=== PATIENT | male | born 1960 | race Caucasian/White ===

== ENCOUNTER 2018-03-15 08:19 | Inpatient (IN) | payer MEDICAID ==
[~2018-03-15] VITALS: Ht 188 cm; Wt 96.6 kg
[2018-03-15 09:46] LABS: BASOPHILS % (AUTO) 0 % (0-1); EOSINOPHILS % (AUTO) 0 % (0-6); HEMOGLOBIN 17.6 g/dl (14.0-17.9); LYMPHOCYTES # (AUTO) 0.2 X10'3 (1.1-4.8); LYMPHOCYTES % (AUTO) 0.9 % (21-51); MEAN CORPUSCULAR HEMOGLOBIN 30.1 PG (27.0-31.0); MEAN CORPUSCULAR HGB CONC 34.5 % (33.0-36.5); MEAN CORPUSCULAR VOLUME 87.2 FL (78-98); MONOCYTES # (AUTO) 0.8 X10'3 (0-0.9); MONOCYTES % (AUTO) 3.3 % (2-12); NEUTROPHILS # (AUTO) 23.1 X10'3 (1.8-7.7); NEUTROPHILS % (AUTO) 95.8 % (42-75); PLATELET COUNT 139 X10'3 (140-440); RED BLOOD COUNT 5.85 X10'6 (4.70-6.10); RED CELL DISTRIBUTION WIDTH 13.5 % (11.5-14.5); WHITE BLOOD COUNT 24.1 X10'3 (4.5-11.0)
[2018-03-15 09:59] LABS: PLATELET ESTIMATE DECREASED; TOTAL CELLS COUNTED 100
[2018-03-15 10:00] LABS: TOXIC VACUOLATION 1+
[2018-03-15 10:04] LABS: INR 1.3 INR; PARTIAL THROMBOPLASTIN TIME 28 SECONDS (22-32); PROTHROMBIN TIME 13.1 SECONDS (9.0-12.0)
[2018-03-15 10:08] LABS: AMMONIA < 10 UMOL/L (11-32)
[2018-03-15 10:12] LABS: ALANINE AMINOTRANSFERASE 29 U/L (12-78); ALBUMIN 2.8 G/DL (3.4-5.0); ALBUMIN/GLOBULIN RATIO 0.6 (1.1-1.5); ALKALINE PHOSPHATASE 122 IU/L (46-116); ANION GAP 7 (8-16); ASPARTATE AMINO TRANSFERASE 25 U/L (10-37); BILIRUBIN,TOTAL 2.2 MG/DL (0.1-1.0); BLOOD UREA NITROGEN 23 MG/DL (7-18); CALCIUM 8.9 MG/DL (8.5-10.1); CHLORIDE 85 MMOL/L (99-107); CREATININE 1.35 MG/DL (0.60-1.10); GLUCOSE 133 MG/DL (70-104); POTASSIUM 3.4 MMOL/L (3.5-5.1); TOTAL CARBON DIOXIDE 27.1 MMOL/L (24-32); TOTAL PROTEIN 7.3 G/DL (6.4-8.2); eGFR 55 ML/MIN
[2018-03-15 10:14] LABS: SODIUM 119 MMOL/L (135-145)
[2018-03-15 10:16] LABS: ETHANOL < 0.010 GM/DL (0.0-0.010)
[2018-03-15 10:17] LABS: LACTIC SEPSIS 1.8 MMOL/L (0.4-2.0)
[2018-03-15] MEDS ORDERED: piperacillin/tazo 4.5gm/100ml 100 ML IV SCH (10:25)
[2018-03-15 10:37] LABS: CLARITY,URINE SLIGHTLY CLOUDY (Clear); COLOR,URINE YELLOW (Yellow); GLUCOSE, URINE NEGATIVE (Neg); KETONES,URINE TRACE mg/dl (Neg); LEUKOCYTE ESTERASE ,URINE NEGATIVE (Neg); NITRITES, URINE NEGATIVE (Neg); OCCULT BLOOD,URINE LARGE (Neg); PROTEIN,URINE 100 mg/dl (Neg)
[2018-03-15 10:40] LABS: URINE AMPHETAMINE SCREEN NEGATIVE (Neg); URINE BARBITUATE SCREEN NEGATIVE (Neg); URINE BENZODIAZEPINES SCREEN NEGATIVE (Neg); URINE CANNABINOID SCREEN NEGATIVE (Neg); URINE COCAINE SCREEN NEGATIVE (Neg); URINE METHADONE SCREEN NEGATIVE (Neg); URINE OPIATE SCREEN POSITIVE (Neg); URINE PHENCYCLIDINE SCREEN NEGATIVE (Neg)
[2018-03-15 10:52] LABS: UA COLLECTION TYPE STRAIGHT CATH
[2018-03-15 11:00] LABS: AMORPHOUS URATES 2+; BACTERIA,URINE NONE SEEN /HPF (Neg); SQUAMOUS EPITHELIAL CELL,UR FEW /LPF (FEW); WBC,URINE 0-4 /HPF (0-4)
[2018-03-15 11:01] LABS: RBC,URINE 0-2 /HPF (0-2)
[2018-03-15 11:02] LABS: HYALINE CASTS 0-3 /LPF (NEGATIVE)
[2018-03-15] MEDS ORDERED: LORazepam 2 mg/ml vial IV ONE (11:25)
[2018-03-15] MEDS ORDERED: normal saline 1000ML IV soln IV ONE (11:25)
[2018-03-15] MEDS ORDERED: NO HOME MEDS (11:35)
[2018-03-15] MEDS ORDERED: acetaminophen 650mg rectal suppository RC ONE (13:05)
[2018-03-15] MEDS ORDERED: normal saline 1000ML IV soln IVB ONE (13:05)
[2018-03-15] MEDS ORDERED: vancomycin/NS 1 GM ADD-VANTAGE 250 ML IV ONE (13:05)
[2018-03-15] MEDS ORDERED: magnesium 4gm in 100ml NS 100 ML IV PRN (14:25)
[2018-03-15] MEDS ORDERED: CefTRIAXone 2gm/D5W 50ml 50 ML IV SCH (14:25)
[2018-03-15] MEDS ORDERED: magnesium Cl slow-release 64mg tablet PO PRN (14:25)
[2018-03-15] MEDS ORDERED: HYDROcodone/acetaminophen 5mg/325mg tablet PO PRN (14:25)
[2018-03-15] MEDS ORDERED: potassium Cl 40MEQ/NS 500ml 500 ML IV PRN ×2 (14:25)
[2018-03-15] MEDS ORDERED: magnesium 1gm/100ml D5W IVPB 100 ML IV PRN (14:25)
[2018-03-15] MEDS ORDERED: potassium Cl 20 mEq SR tablet PO PRN (14:25)
[2018-03-15] MEDS ORDERED: acetaminophen 325mg tablet PO PRN ×2 (14:25)
[2018-03-15] MEDS ORDERED: magnesium hydroxide 30ml (MOM) UD suspension PO PRN (14:25)
[2018-03-15] MEDS ORDERED: HYDROmorphone inj. 0.5 MG/0.5 ML DISP.SYRIN IV PRN ×2 (14:25)
[2018-03-15] MEDS ORDERED: iohexol 300mg/ml 100ml inj. ONE (14:27)
[2018-03-15 14:46] LABS: HEMOGLOBIN A1C 5.4 % (4.5-6.2)
[2018-03-15] MEDS: K and/or MAG REPLACEMENT MC SCH (14:51)
[2018-03-15] MEDS ORDERED: vancomycin/NS 1 GM ADD-VANTAGE 250 ML X 1 DOSE IV ONE (15:00)
[2018-03-15 15:13] LABS: BASOPHILS % (AUTO) 0 % (0-1); EOSINOPHILS % (AUTO) 0 % (0-6); HEMATOCRIT 46.7 % (42.0-52.0); HEMOGLOBIN 16.1 g/dl (14.0-17.9); LYMPHOCYTES # (AUTO) 0.3 X10'3 (1.1-4.8); LYMPHOCYTES % (AUTO) 1.2 % (21-51); MEAN CORPUSCULAR HEMOGLOBIN 30.3 PG (27.0-31.0); MEAN CORPUSCULAR HGB CONC 34.5 % (33.0-36.5); MEAN CORPUSCULAR VOLUME 87.8 FL (78-98); MEAN PLATELET VOLUME 8.6 FL (7.4-10.4); MONOCYTES # (AUTO) 0.7 X10'3 (0-0.9); NEUTROPHILS # (AUTO) 20.8 X10'3 (1.8-7.7); NEUTROPHILS % (AUTO) 95.8 % (42-75); PLATELET COUNT 116 X10'3 (140-440); RED BLOOD COUNT 5.32 X10'6 (4.70-6.10); RED CELL DISTRIBUTION WIDTH 13.8 % (11.5-14.5); WHITE BLOOD COUNT 21.7 X10'3 (4.5-11.0)
[2018-03-15 15:28] LABS: NUCLEATED RED BLOOD CELLS 3 /100WBC (0-0); PLATELET ESTIMATE DECREASED; TOTAL CELLS COUNTED 100
[2018-03-15 15:33] LABS: ALANINE AMINOTRANSFERASE 27 U/L (12-78); ALBUMIN 2.3 G/DL (3.4-5.0); ALBUMIN/GLOBULIN RATIO 0.6 (1.1-1.5); ALKALINE PHOSPHATASE 108 IU/L (46-116); ANION GAP 7 (8-16); ASPARTATE AMINO TRANSFERASE 22 U/L (10-37); BLOOD UREA NITROGEN 22 MG/DL (7-18); BUN/CREATININE RATIO 15.8 (5.4-32.0); CALCIUM 7.8 MG/DL (8.5-10.1); CHLORIDE 92 MMOL/L (99-107); CREATININE 1.39 MG/DL (0.60-1.10); GLUCOSE 120 MG/DL (70-104); SODIUM 125 MMOL/L (135-145); eGFR 53 ML/MIN
[2018-03-15 15:35] LABS: HIV ANTIBODY 1&2 RAPID NON-REACTIVE (Neg)
[2018-03-15 15:50] LABS: C-REACTIVE PROTEIN 17.57 MG/DL (0.0-0.5)
[2018-03-15] MEDS: ziprasidone IM 20mg inj **IM only IM PRN (17:38)
[2018-03-15] MEDS: normal saline 1000ml 1,000 ML IV SCH (17:39)
[2018-03-15] MEDS: ampicillin inj 2 GM in normal saline 100ml IV soln 100 ML IV SCH ×3 (17:42→23:54)
[2018-03-15 18:00] VITALS: BP 114/66
[2018-03-15] MEDS: CefTRIAXone 2gm/D5W 50ml 50 ML IV SCH (19:54)
[2018-03-15] MEDS: heparin, porcine 5000 units/ml vial SQ SCH (19:55)
[2018-03-15 22:00] VITALS: BP 116/93
[2018-03-15] MEDS ORDERED: acetaminophen 120MG suppository, rectal RC PRN (22:55)
[2018-03-16] MEDS: normal saline 1000ml 1,000 ML IV SCH ×3 (00:21→11:56)
[2018-03-16 02:00] VITALS: BP 121/68
[2018-03-16] MEDS: ampicillin inj 2 GM in normal saline 100ml IV soln 100 ML IV SCH ×3 (04:09→11:48)
[2018-03-16] MEDS: ziprasidone IM 20mg inj **IM only IM PRN ×2 (04:16→10:54)
[2018-03-16] MEDS: vancomycin inj 1,250 MG in normal saline 250ml IV soln 250 ML IV SCH ×2 (05:17→16:38)
[2018-03-16 06:00] VITALS: BP 114/68
[2018-03-16 06:41] LABS: BASOPHILS % (AUTO) 0.1 % (0-1); EOSINOPHILS % (AUTO) 0 % (0-6); HEMATOCRIT 49.3 % (42.0-52.0); LYMPHOCYTES # (AUTO) 0.5 X10'3 (1.1-4.8); LYMPHOCYTES % (AUTO) 2.9 % (21-51); MEAN CORPUSCULAR HEMOGLOBIN 30.2 PG (27.0-31.0); MEAN CORPUSCULAR HGB CONC 34.5 % (33.0-36.5); MEAN CORPUSCULAR VOLUME 87.4 FL (78-98); MEAN PLATELET VOLUME 9.4 FL (7.4-10.4); MONOCYTES # (AUTO) 1.6 X10'3 (0-0.9); MONOCYTES % (AUTO) 8.9 % (2-12); NEUTROPHILS # (AUTO) 15.9 X10'3 (1.8-7.7); NEUTROPHILS % (AUTO) 88.1 % (42-75); PLATELET COUNT 93 X10'3 (140-440); RED BLOOD COUNT 5.65 X10'6 (4.70-6.10); RED CELL DISTRIBUTION WIDTH 13.8 % (11.5-14.5)
[2018-03-16 06:49] LABS: INR 1.3 INR; PARTIAL THROMBOPLASTIN TIME 29 SECONDS (22-32); PROTHROMBIN TIME 13.3 SECONDS (9.0-12.0)
[2018-03-16 06:56] LABS: ALANINE AMINOTRANSFERASE 25 U/L (12-78); ALBUMIN 2.1 G/DL (3.4-5.0); ALBUMIN/GLOBULIN RATIO 0.5 (1.1-1.5); ALKALINE PHOSPHATASE 103 IU/L (46-116); ANION GAP 10 (8-16); ASPARTATE AMINO TRANSFERASE 32 U/L (10-37); BILIRUBIN,TOTAL 1.2 MG/DL (0.1-1.0); BLOOD UREA NITROGEN 18 MG/DL (7-18); BUN/CREATININE RATIO 13.1 (5.4-32.0); CHLORIDE 100 MMOL/L (99-107); CREATININE 1.37 MG/DL (0.60-1.10); GLUCOSE 110 MG/DL (70-104); MAGNESIUM 1.6 MG/DL (1.5-2.4); PHOSPHORUS 2.1 MG/DL (2.3-4.5); POTASSIUM 3.1 MMOL/L (3.5-5.1); SODIUM 135 MMOL/L (135-145); TOTAL CARBON DIOXIDE 24.7 MMOL/L (24-32); TOTAL PROTEIN 6.2 G/DL (6.4-8.2); eGFR 54 ML/MIN
[2018-03-16] MEDS: K and/or MAG REPLACEMENT MC SCH (08:00)
[2018-03-16] MEDS: heparin, porcine 5000 units/ml vial SQ SCH ×2 (08:27→20:00)
[2018-03-16] MEDS: CefTRIAXone 2gm/D5W 50ml 50 ML IV SCH (08:29)
[2018-03-16] MEDS ORDERED: acetaminophen 325mg rectal suppository RC PRN (10:35)
[2018-03-16 11:00] VITALS: BP 126/79
[2018-03-16 15:00] VITALS: BP 118/77
[2018-03-16 19:00] VITALS: BP 121/76
[2018-03-16] MEDS: lactobacillus rhamnosus 10,000 MMU CELLS/CAPSULE PO SCH (20:00)
[2018-03-16] MEDS: HYDROcodone/acetaminophen 10/325mg tab PO PRN (22:45)
[2018-03-16] MEDS: LORazepam 2 mg/ml vial IV PRN (22:45)
[2018-03-16 23:00] VITALS: BP 118/77
[2018-03-17 03:00] VITALS: BP 122/75
[2018-03-17] MEDS: vancomycin inj 1,250 MG in normal saline 250ml IV soln 250 ML IV SCH ×2 (04:11→16:00)
[2018-03-17 05:46] LABS: BASOPHILS % (AUTO) 0 % (0-1); EOSINOPHILS # (AUTO) 0.1 X10'3 (0-0.9); EOSINOPHILS % (AUTO) 0.4 % (0-6); HEMATOCRIT 41.4 % (42.0-52.0); HEMOGLOBIN 14.4 g/dl (14.0-17.9); LYMPHOCYTES # (AUTO) 0.8 X10'3 (1.1-4.8); MEAN CORPUSCULAR HEMOGLOBIN 30.5 PG (27.0-31.0); MEAN CORPUSCULAR HGB CONC 34.8 % (33.0-36.5); MEAN CORPUSCULAR VOLUME 87.5 FL (78-98); MEAN PLATELET VOLUME 9.1 FL (7.4-10.4); MONOCYTES # (AUTO) 1.2 X10'3 (0-0.9); MONOCYTES % (AUTO) 7.4 % (2-12); NEUTROPHILS # (AUTO) 13.9 X10'3 (1.8-7.7); NEUTROPHILS % (AUTO) 87.2 % (42-75); PLATELET COUNT 69 X10'3 (140-440); RED BLOOD COUNT 4.73 X10'6 (4.70-6.10); RED CELL DISTRIBUTION WIDTH 14.5 % (11.5-14.5)
[2018-03-17 06:00] VITALS: BP 101/66
[2018-03-17 06:01] LABS: INR 1.2 INR; PARTIAL THROMBOPLASTIN TIME 27 SECONDS (22-32); PROTHROMBIN TIME 11.9 SECONDS (9.0-12.0)
[2018-03-17 06:12] LABS: ALANINE AMINOTRANSFERASE 33 U/L (12-78); ALBUMIN 1.8 G/DL (3.4-5.0); ALBUMIN/GLOBULIN RATIO 0.5 (1.1-1.5); ALKALINE PHOSPHATASE 85 IU/L (46-116); ANION GAP 8 (8-16); ASPARTATE AMINO TRANSFERASE 41 U/L (10-37); BILIRUBIN,TOTAL 1.1 MG/DL (0.1-1.0); BLOOD UREA NITROGEN 21 MG/DL (7-18); BUN/CREATININE RATIO 16.7 (5.4-32.0); CALCIUM 7.8 MG/DL (8.5-10.1); CHLORIDE 104 MMOL/L (99-107); CREATININE 1.26 MG/DL (0.60-1.10); GLUCOSE 108 MG/DL (70-104); MAGNESIUM 1.7 MG/DL (1.5-2.4); POTASSIUM 3.1 MMOL/L (3.5-5.1); SODIUM 137 MMOL/L (135-145); TOTAL PROTEIN 5.5 G/DL (6.4-8.2); eGFR 59 ML/MIN
[2018-03-17] MEDS: normal saline 1000ml 1,000 ML IV SCH ×2 (06:21→16:21)
[2018-03-17] MEDS: CefTRIAXone 2gm/D5W 50ml 50 ML IV SCH (08:00)
[2018-03-17] MEDS: K and/or MAG REPLACEMENT MC SCH (08:00)
[2018-03-17] MEDS: heparin, porcine 5000 units/ml vial SQ SCH ×2 (08:00→20:00)
[2018-03-17] MEDS: lactobacillus rhamnosus 10,000 MMU CELLS/CAPSULE PO SCH ×2 (08:00→20:29)
[2018-03-17] MEDS: ondansetron/PF 4mg/2ml inj IV PRN (10:36)
[2018-03-17 11:00] VITALS: BP 102/57
[2018-03-17] MEDS: potassium Cl 20 mEq SR tablet PO PRN (13:00)
[2018-03-17] MEDS ORDERED: VANCOMYCIN LEVEL IV ONE (15:30)
[2018-03-17 15:33] VITALS: BP 110/72
[2018-03-17] MEDS: HYDROcodone/acetaminophen 10/325mg tab PO PRN (17:12)
[2018-03-17 19:00] VITALS: BP 105/57
[2018-03-17 23:00] VITALS: BP 115/74
[2018-03-18] VITALS (7 sets, daily range): BP systolic 88–131; BP diastolic 47–79
[2018-03-18] MEDS: normal saline 1000ml 1,000 ML IV SCH ×3 (01:19→14:21)
[2018-03-18 05:48] LABS: BASOPHILS % (AUTO) 0.1 % (0-1); EOSINOPHILS # (AUTO) 0.2 X10'3 (0-0.9); EOSINOPHILS % (AUTO) 1.3 % (0-6); HEMATOCRIT 42.4 % (42.0-52.0); HEMOGLOBIN 14.6 g/dl (14.0-17.9); LYMPHOCYTES # (AUTO) 0.7 X10'3 (1.1-4.8); LYMPHOCYTES % (AUTO) 4.8 % (21-51); MEAN CORPUSCULAR HEMOGLOBIN 30.2 PG (27.0-31.0); MEAN CORPUSCULAR HGB CONC 34.3 % (33.0-36.5); MEAN PLATELET VOLUME 9.5 FL (7.4-10.4); MONOCYTES # (AUTO) 1.1 X10'3 (0-0.9); NEUTROPHILS # (AUTO) 13.4 X10'3 (1.8-7.7); NEUTROPHILS % (AUTO) 86.8 % (42-75); PLATELET COUNT 63 X10'3 (140-440); RED BLOOD COUNT 4.82 X10'6 (4.70-6.10); RED CELL DISTRIBUTION WIDTH 14.7 % (11.5-14.5); WHITE BLOOD COUNT 15.4 X10'3 (4.5-11.0)
[2018-03-18 06:04] LABS: INR 1.1 INR; PARTIAL THROMBOPLASTIN TIME 26 SECONDS (22-32); PROTHROMBIN TIME 11.1 SECONDS (9.0-12.0)
[2018-03-18 06:15] LABS: ALANINE AMINOTRANSFERASE 46 U/L (12-78); ALBUMIN 1.8 G/DL (3.4-5.0); ALBUMIN/GLOBULIN RATIO 0.5 (1.1-1.5); ALKALINE PHOSPHATASE 97 IU/L (46-116); ANION GAP 7 (8-16); ASPARTATE AMINO TRANSFERASE 53 U/L (10-37); BILIRUBIN,TOTAL 1.2 MG/DL (0.1-1.0); BLOOD UREA NITROGEN 15 MG/DL (7-18); CALCIUM 7.6 MG/DL (8.5-10.1); CHLORIDE 104 MMOL/L (99-107); CREATININE 1.25 MG/DL (0.60-1.10); GLUCOSE 98 MG/DL (70-104); MAGNESIUM 1.6 MG/DL (1.5-2.4); PHOSPHORUS 1.8 MG/DL (2.3-4.5); POTASSIUM 3.2 MMOL/L (3.5-5.1); SODIUM 138 MMOL/L (135-145); TOTAL CARBON DIOXIDE 26.7 MMOL/L (24-32); TOTAL PROTEIN 5.6 G/DL (6.4-8.2); eGFR 60 ML/MIN
[2018-03-18] MEDS: CefTRIAXone 2gm/D5W 50ml 50 ML IV SCH (07:57)
[2018-03-18] MEDS: heparin, porcine 5000 units/ml vial SQ SCH ×2 (07:57→20:00)
[2018-03-18] MEDS: potassium Cl 20 mEq SR tablet PO PRN ×3 (07:58→23:20)
[2018-03-18] MEDS: K and/or MAG REPLACEMENT MC SCH (07:58)
[2018-03-18] MEDS: lactobacillus rhamnosus 10,000 MMU CELLS/CAPSULE PO SCH ×2 (07:58→19:50)
[2018-03-18 11:09] LABS: URINE AMPHETAMINE SCREEN NEGATIVE (Neg); URINE BARBITUATE SCREEN NEGATIVE (Neg); URINE BENZODIAZEPINES SCREEN NEGATIVE (Neg); URINE CANNABINOID SCREEN NEGATIVE (Neg); URINE COCAINE SCREEN NEGATIVE (Neg); URINE METHADONE SCREEN NEGATIVE (Neg); URINE OPIATE SCREEN POSITIVE (Neg); URINE PHENCYCLIDINE SCREEN NEGATIVE (Neg)
[2018-03-18] MEDS: HYDROcodone/acetaminophen 10/325mg tab PO PRN ×3 (11:43→21:30)
[2018-03-18] MEDS ORDERED: normal saline 1000ml 1,000 ML IV ONE (12:05)
[2018-03-18] MEDS ORDERED: magnesium 4gm in 100ml NS 100 ML IV PRN ×2 (12:10→14:45)
[2018-03-18] MEDS ORDERED: potassium Cl 40MEQ/NS 500ml 500 ML IV PRN ×2 (14:45)
[2018-03-18] MEDS ORDERED: potassium Cl 20 mEq SR tablet PO PRN (14:45)
[2018-03-18] MEDS: NORMAL SALINE IV SCH ×2 (19:50→23:26)
[2018-03-18] MEDS: NAFCILLIN IV SCH ×2 (19:50→23:26)
[2018-03-18] MEDS: HYDROmorphone 1 mg/ml syringe IV PRN (23:26)
[2018-03-19 03:00] VITALS: BP 112/69
[2018-03-19] MEDS: NORMAL SALINE IV SCH ×5 (03:42→20:36)
[2018-03-19] MEDS: NAFCILLIN IV SCH ×5 (03:42→20:36)
[2018-03-19] MEDS: normal saline 1000ml 1,000 ML IV SCH ×2 (03:42→16:36)
[2018-03-19 05:51] LABS: BASOPHILS # (AUTO) 0.1 X10'3 (0-0.2); BASOPHILS % (AUTO) 0.4 % (0-1); EOSINOPHILS # (AUTO) 0.3 X10'3 (0-0.9); EOSINOPHILS % (AUTO) 1.7 % (0-6); HEMOGLOBIN 13.9 g/dl (14.0-17.9); LYMPHOCYTES # (AUTO) 1.1 X10'3 (1.1-4.8); LYMPHOCYTES % (AUTO) 6.7 % (21-51); MEAN CORPUSCULAR HEMOGLOBIN 30.4 PG (27.0-31.0); MEAN CORPUSCULAR HGB CONC 34.8 % (33.0-36.5); MEAN CORPUSCULAR VOLUME 87.5 FL (78-98); MEAN PLATELET VOLUME 9.5 FL (7.4-10.4); MONOCYTES # (AUTO) 1.2 X10'3 (0-0.9); MONOCYTES % (AUTO) 7.5 % (2-12); NEUTROPHILS # (AUTO) 13.5 X10'3 (1.8-7.7); NEUTROPHILS % (AUTO) 83.7 % (42-75); PLATELET COUNT 77 X10'3 (140-440); RED BLOOD COUNT 4.58 X10'6 (4.70-6.10); RED CELL DISTRIBUTION WIDTH 14.7 % (11.5-14.5); WHITE BLOOD COUNT 16.1 X10'3 (4.5-11.0)
[2018-03-19 06:00] VITALS: BP 113/67
[2018-03-19 06:00] LABS: INR 1.1 INR; PROTHROMBIN TIME 11.6 SECONDS (9.0-12.0)
[2018-03-19 06:13] LABS: ALANINE AMINOTRANSFERASE 55 U/L (12-78); ALBUMIN 1.7 G/DL (3.4-5.0); ALBUMIN/GLOBULIN RATIO 0.4 (1.1-1.5); ALKALINE PHOSPHATASE 104 IU/L (46-116); ANION GAP 8 (8-16); ASPARTATE AMINO TRANSFERASE 55 U/L (10-37); BILIRUBIN,TOTAL 2.1 MG/DL (0.1-1.0); BLOOD UREA NITROGEN 11 MG/DL (7-18); BUN/CREATININE RATIO 9.6 (5.4-32.0); CALCIUM 7.3 MG/DL (8.5-10.1); CHLORIDE 105 MMOL/L (99-107); CREATININE 1.14 MG/DL (0.60-1.10); GLUCOSE 106 MG/DL (70-104); MAGNESIUM 1.5 MG/DL (1.5-2.4); PHOSPHORUS 2.3 MG/DL (2.3-4.5); POTASSIUM 3.2 MMOL/L (3.5-5.1); SODIUM 139 MMOL/L (135-145); TOTAL CARBON DIOXIDE 25.7 MMOL/L (24-32); TOTAL PROTEIN 5.6 G/DL (6.4-8.2); eGFR 67 ML/MIN
[2018-03-19] MEDS: potassium Cl 20 mEq SR tablet PO PRN ×3 (08:55→20:36)
[2018-03-19] MEDS: lactobacillus rhamnosus 10,000 MMU CELLS/CAPSULE PO SCH ×2 (08:55→20:36)
[2018-03-19] MEDS: HYDROcodone/acetaminophen 10/325mg tab PO PRN ×3 (08:56→20:37)
[2018-03-19] MEDS: K and/or MAG REPLACEMENT MC SCH (08:59)
[2018-03-19 11:00] VITALS: BP 111/63
[2018-03-19] MEDS: HYDROmorphone 1 mg/ml syringe IV PRN ×2 (12:09→16:43)
[2018-03-19 15:00] VITALS: BP 111/62
[2018-03-19] MEDS ORDERED: VANCOMYCIN LEVEL IV ONE (15:30)
[2018-03-19 19:00] VITALS: BP 127/85
[2018-03-19] MEDS: vancomcyin 250mg capsules PO SCH (20:35)
[2018-03-19] MEDS: diatr meglu/diatrizoate 30ml oral sol.-(3 dose) bottle PO SCH (20:36)
[2018-03-19 23:00] VITALS: BP 96/53
[2018-03-20] MEDS: NORMAL SALINE IV SCH ×6 (00:39→20:28)
[2018-03-20] MEDS: NAFCILLIN IV SCH ×6 (00:39→20:28)
[2018-03-20] MEDS: vancomcyin 250mg capsules PO SCH ×4 (02:25→20:28)
[2018-03-20 03:00] VITALS: BP 102/56
[2018-03-20] MEDS: normal saline 1000ml 1,000 ML IV SCH ×2 (04:48→14:21)
[2018-03-20 05:30] VITALS: BP 134/68
[2018-03-20 05:45] LABS: BASOPHILS % (AUTO) 0.5 % (0-1); EOSINOPHILS # (AUTO) 0.3 X10'3 (0-0.9); EOSINOPHILS % (AUTO) 2.9 % (0-6); HEMATOCRIT 36.6 % (42.0-52.0); HEMOGLOBIN 12.6 g/dl (14.0-17.9); LYMPHOCYTES % (AUTO) 10.7 % (21-51); MEAN CORPUSCULAR HEMOGLOBIN 30.2 PG (27.0-31.0); MEAN CORPUSCULAR HGB CONC 34.5 % (33.0-36.5); MEAN CORPUSCULAR VOLUME 87.6 FL (78-98); MONOCYTES # (AUTO) 0.8 X10'3 (0-0.9); MONOCYTES % (AUTO) 8.6 % (2-12); NEUTROPHILS # (AUTO) 7.2 X10'3 (1.8-7.7); NEUTROPHILS % (AUTO) 77.3 % (42-75); PLATELET COUNT 114 X10'3 (140-440); RED BLOOD COUNT 4.18 X10'6 (4.70-6.10); RED CELL DISTRIBUTION WIDTH 15.2 % (11.5-14.5); WHITE BLOOD COUNT 9.3 X10'3 (4.5-11.0)
[2018-03-20 05:58] LABS: INR 1.2 INR; PROTHROMBIN TIME 12.3 SECONDS (9.0-12.0)
[2018-03-20 06:05] LABS: ALANINE AMINOTRANSFERASE 37 U/L (12-78); ALBUMIN 1.5 G/DL (3.4-5.0); ALBUMIN/GLOBULIN RATIO 0.4 (1.1-1.5); ALKALINE PHOSPHATASE 85 IU/L (46-116); ANION GAP 6 (8-16); ASPARTATE AMINO TRANSFERASE 31 U/L (10-37); BILIRUBIN,TOTAL 1.3 MG/DL (0.1-1.0); BLOOD UREA NITROGEN 6 MG/DL (7-18); BUN/CREATININE RATIO 6.2 (5.4-32.0); CALCIUM 7.2 MG/DL (8.5-10.1); CHLORIDE 107 MMOL/L (99-107); CREATININE 0.97 MG/DL (0.60-1.10); GLUCOSE 106 MG/DL (70-104); MAGNESIUM 1.4 MG/DL (1.5-2.4); POTASSIUM 3.3 MMOL/L (3.5-5.1); SODIUM 139 MMOL/L (135-145); TOTAL PROTEIN 5.1 G/DL (6.4-8.2); eGFR 80 ML/MIN
[2018-03-20] MEDS: potassium Cl 20 mEq SR tablet PO PRN ×3 (07:25→16:44)
[2018-03-20] MEDS: diatr meglu/diatrizoate 30ml oral sol.-(3 dose) bottle PO SCH ×2 (07:25→09:51)
[2018-03-20] MEDS: HYDROcodone/acetaminophen 10/325mg tab PO PRN ×3 (07:26→20:31)
[2018-03-20] MEDS: lactobacillus rhamnosus 10,000 MMU CELLS/CAPSULE PO SCH ×2 (07:26→20:28)
[2018-03-20] MEDS: magnesium Cl slow-release 64mg tablet PO PRN ×2 (07:26→16:44)
[2018-03-20] MEDS: K and/or MAG REPLACEMENT MC SCH (07:27)
[2018-03-20 11:00] VITALS: BP 102/43
[2018-03-20] MEDS: HYDROmorphone 1 mg/ml syringe IV PRN (12:04)
[2018-03-20] MEDS ORDERED: iohexol 300mg/ml 100ml inj. ONE (13:31)
[2018-03-20 15:00] VITALS: BP 110/62
[2018-03-20 19:00] VITALS: BP 109/56
[2018-03-20] MEDS: ondansetron/PF 4mg/2ml inj IV PRN (20:32)
[2018-03-20 23:00] VITALS: BP 103/64
[2018-03-21] MEDS: normal saline 1000ml 1,000 ML IV SCH ×3 (00:27→19:42)
[2018-03-21] MEDS: NORMAL SALINE IV SCH ×7 (00:28→23:52)
[2018-03-21] MEDS: NAFCILLIN IV SCH ×7 (00:28→23:52)
[2018-03-21] MEDS: temazepam 15mg capsule PO PRN ×2 (00:33→21:42)
[2018-03-21] MEDS: HYDROcodone/acetaminophen 10/325mg tab PO PRN ×4 (00:33→16:25)
[2018-03-21] MEDS: vancomcyin 250mg capsules PO SCH ×2 (02:25→08:08)
[2018-03-21 03:00] VITALS: BP 105/64
[2018-03-21] MEDS: mag hydrox/Alum hydrox/simeth 30ml oral suspension PO PRN (04:36)
[2018-03-21 05:30] VITALS: BP 95/54
[2018-03-21 06:11] LABS: MAGNESIUM 1.4 MG/DL (1.5-2.4)
[2018-03-21 07:06] LABS: BASOPHILS % (AUTO) 0.3 % (0-1); EOSINOPHILS # (AUTO) 0.3 X10'3 (0-0.9); EOSINOPHILS % (AUTO) 4.8 % (0-6); HEMATOCRIT 35.3 % (42.0-52.0); HEMOGLOBIN 12.1 g/dl (14.0-17.9); LYMPHOCYTES % (AUTO) 16.8 % (21-51); MEAN CORPUSCULAR HEMOGLOBIN 30.4 PG (27.0-31.0); MEAN CORPUSCULAR HGB CONC 34.4 % (33.0-36.5); MEAN CORPUSCULAR VOLUME 88.5 FL (78-98); MEAN PLATELET VOLUME 8.9 FL (7.4-10.4); MONOCYTES # (AUTO) 0.7 X10'3 (0-0.9); MONOCYTES % (AUTO) 11.2 % (2-12); NEUTROPHILS % (AUTO) 66.9 % (42-75); PLATELET COUNT 136 X10'3 (140-440); RED BLOOD COUNT 3.99 X10'6 (4.70-6.10); RED CELL DISTRIBUTION WIDTH 14.9 % (11.5-14.5)
[2018-03-21 07:13] LABS: POTASSIUM 3.5 MMOL/L (3.5-5.1)
[2018-03-21] MEDS: K and/or MAG REPLACEMENT MC SCH (08:00)
[2018-03-21] MEDS: magnesium Cl slow-release 64mg tablet PO PRN (08:08)
[2018-03-21] MEDS: lactobacillus rhamnosus 10,000 MMU CELLS/CAPSULE PO SCH ×2 (08:08→19:30)
[2018-03-21] MEDS: ondansetron/PF 4mg/2ml inj IV PRN (09:07)
[2018-03-21 11:00] VITALS: BP 105/62
[2018-03-21 15:00] VITALS: BP 103/62
[2018-03-21 19:00] VITALS: BP 125/67
[2018-03-21] MEDS: HYDROmorphone 1 mg/ml syringe IV PRN ×2 (19:42→23:53)
[2018-03-21 23:00] VITALS: BP 122/67
[2018-03-22 03:00] VITALS: BP 104/64
[2018-03-22] MEDS: NORMAL SALINE IV SCH ×5 (04:59→19:43)
[2018-03-22] MEDS: NAFCILLIN IV SCH ×5 (04:59→19:43)
[2018-03-22] MEDS: HYDROmorphone 1 mg/ml syringe IV PRN ×5 (05:05→23:56)
[2018-03-22 06:30] VITALS: BP 137/72
[2018-03-22] MEDS: normal saline 1000ml 1,000 ML IV SCH ×2 (06:34→16:21)
[2018-03-22] MEDS: K and/or MAG REPLACEMENT MC SCH (08:00)
[2018-03-22] MEDS: lactobacillus rhamnosus 10,000 MMU CELLS/CAPSULE PO SCH ×2 (08:13→19:43)
[2018-03-22] MEDS: ondansetron/PF 4mg/2ml inj IV PRN ×2 (09:26→16:04)
[2018-03-22 09:33] LABS: BASOPHILS # (AUTO) 0.1 X10'3 (0-0.2); BASOPHILS % (AUTO) 1.1 % (0-1); EOSINOPHILS # (AUTO) 0.1 X10'3 (0-0.9); EOSINOPHILS % (AUTO) 1.6 % (0-6); HEMATOCRIT 36.5 % (42.0-52.0); HEMOGLOBIN 12.8 g/dl (14.0-17.9); LYMPHOCYTES # (AUTO) 0.8 X10'3 (1.1-4.8); LYMPHOCYTES % (AUTO) 10.8 % (21-51); MEAN CORPUSCULAR HEMOGLOBIN 30.8 PG (27.0-31.0); MEAN CORPUSCULAR HGB CONC 35.1 % (33.0-36.5); MEAN CORPUSCULAR VOLUME 87.7 FL (78-98); MEAN PLATELET VOLUME 8.4 FL (7.4-10.4); MONOCYTES # (AUTO) 0.7 X10'3 (0-0.9); MONOCYTES % (AUTO) 9.1 % (2-12); NEUTROPHILS # (AUTO) 5.9 X10'3 (1.8-7.7); NEUTROPHILS % (AUTO) 77.4 % (42-75); PLATELET COUNT 183 X10'3 (140-440); RED BLOOD COUNT 4.16 X10'6 (4.70-6.10); RED CELL DISTRIBUTION WIDTH 14.8 % (11.5-14.5); WHITE BLOOD COUNT 7.6 X10'3 (4.5-11.0)
[2018-03-22 09:49] LABS: ALANINE AMINOTRANSFERASE 24 U/L (12-78); ALBUMIN 1.8 G/DL (3.4-5.0); ALBUMIN/GLOBULIN RATIO 0.4 (1.1-1.5); ALKALINE PHOSPHATASE 74 IU/L (46-116); ANION GAP 7 (8-16); ASPARTATE AMINO TRANSFERASE 29 U/L (10-37); BILIRUBIN,TOTAL 1.1 MG/DL (0.1-1.0); BLOOD UREA NITROGEN 4 MG/DL (7-18); BUN/CREATININE RATIO 4.2 (5.4-32.0); CALCIUM 7.7 MG/DL (8.5-10.1); CHLORIDE 105 MMOL/L (99-107); CREATININE 0.95 MG/DL (0.60-1.10); GLUCOSE 113 MG/DL (70-104); POTASSIUM 3.7 MMOL/L (3.5-5.1); SODIUM 139 MMOL/L (135-145); TOTAL CARBON DIOXIDE 26.9 MMOL/L (24-32); TOTAL PROTEIN 6.3 G/DL (6.4-8.2); eGFR 82 ML/MIN
[2018-03-22 11:00] VITALS: BP 116/78
[2018-03-22] MEDS: magnesium 1gm/100ml D5W IVPB 100 ML IV PRN ×2 (13:43→17:14)
[2018-03-22 15:00] VITALS: BP 122/72
[2018-03-22 18:00] VITALS: BP 140/92
[2018-03-22 23:00] VITALS: BP 120/78
[2018-03-23 03:00] VITALS: BP 121/91
[2018-03-23] MEDS: NORMAL SALINE IV SCH ×8 (04:16→23:17)
[2018-03-23] MEDS: NAFCILLIN IV SCH ×8 (04:16→23:17)
[2018-03-23] MEDS: HYDROmorphone 1 mg/ml syringe IV PRN ×5 (04:18→22:58)
[2018-03-23 06:00] VITALS: BP 119/68
[2018-03-23 06:07] LABS: BASOPHILS % (AUTO) 0.3 % (0-1); EOSINOPHILS # (AUTO) 0.2 X10'3 (0-0.9); EOSINOPHILS % (AUTO) 2.5 % (0-6); HEMOGLOBIN 12.8 g/dl (14.0-17.9); LYMPHOCYTES # (AUTO) 0.9 X10'3 (1.1-4.8); LYMPHOCYTES % (AUTO) 9.8 % (21-51); MEAN CORPUSCULAR HEMOGLOBIN 30.6 PG (27.0-31.0); MEAN CORPUSCULAR HGB CONC 34.7 % (33.0-36.5); MEAN PLATELET VOLUME 8.6 FL (7.4-10.4); MONOCYTES # (AUTO) 0.8 X10'3 (0-0.9); NEUTROPHILS # (AUTO) 6.9 X10'3 (1.8-7.7); NEUTROPHILS % (AUTO) 78.4 % (42-75); PLATELET COUNT 212 X10'3 (140-440); RED CELL DISTRIBUTION WIDTH 14.7 % (11.5-14.5); WHITE BLOOD COUNT 8.8 X10'3 (4.5-11.0)
[2018-03-23 06:39] LABS: ALANINE AMINOTRANSFERASE 29 U/L (12-78); ALBUMIN 1.7 G/DL (3.4-5.0); ALBUMIN/GLOBULIN RATIO 0.4 (1.1-1.5); ALKALINE PHOSPHATASE 72 IU/L (46-116); ANION GAP 4 (8-16); ASPARTATE AMINO TRANSFERASE 24 U/L (10-37); BILIRUBIN,TOTAL 1.1 MG/DL (0.1-1.0); BLOOD UREA NITROGEN 6 MG/DL (7-18); BUN/CREATININE RATIO 6.3 (5.4-32.0); CALCIUM 7.5 MG/DL (8.5-10.1); CHLORIDE 103 MMOL/L (99-107); CREATININE 0.96 MG/DL (0.60-1.10); GLUCOSE 112 MG/DL (70-104); POTASSIUM 3.8 MMOL/L (3.5-5.1); SODIUM 134 MMOL/L (135-145); TOTAL PROTEIN 6.4 G/DL (6.4-8.2); eGFR 81 ML/MIN
[2018-03-23] MEDS: K and/or MAG REPLACEMENT MC SCH (08:00)
[2018-03-23] MEDS: lactobacillus rhamnosus 10,000 MMU CELLS/CAPSULE PO SCH ×2 (08:13→20:22)
[2018-03-23] MEDS: ondansetron/PF 4mg/2ml inj IV PRN ×2 (09:11→20:22)
[2018-03-23] MEDS: LORazepam 2 mg/ml vial IV PRN (09:12)
[2018-03-23] MEDS ORDERED: ipratropium/albuterol 3ml nebule NEB PRN (10:30)
[2018-03-23 11:00] VITALS: BP 132/67
[2018-03-23] MEDS: ipratropium/albuterol 3ml nebule NEB SCH ×4 (12:29→23:07)
[2018-03-23] MEDS: normal saline 1000ml 1,000 ML IV SCH ×2 (12:41)
[2018-03-23 15:00] VITALS: BP 135/76
[2018-03-23 18:00] VITALS: BP 122/66
[2018-03-23 22:00] VITALS: BP 120/81
[2018-03-24] VITALS (11 sets, daily range): BP systolic 119–135; BP diastolic 20–86
[2018-03-24] MEDS: normal saline 1000ml 1,000 ML IV SCH ×3 (03:08→18:21)
[2018-03-24] MEDS: HYDROmorphone 1 mg/ml syringe IV PRN ×3 (04:17→20:53)
[2018-03-24] MEDS: NORMAL SALINE IV SCH ×5 (04:19→20:00)
[2018-03-24] MEDS: NAFCILLIN IV SCH ×5 (04:19→20:00)
[2018-03-24 06:31] LABS: BASOPHILS % (AUTO) 0.5 % (0-1); EOSINOPHILS # (AUTO) 0.3 X10'3 (0-0.9); EOSINOPHILS % (AUTO) 3.8 % (0-6); HEMATOCRIT 37.2 % (42.0-52.0); HEMOGLOBIN 12.6 g/dl (14.0-17.9); LYMPHOCYTES # (AUTO) 0.9 X10'3 (1.1-4.8); LYMPHOCYTES % (AUTO) 10.7 % (21-51); MEAN CORPUSCULAR HEMOGLOBIN 30.1 PG (27.0-31.0); MEAN CORPUSCULAR HGB CONC 33.8 % (33.0-36.5); MEAN PLATELET VOLUME 8.4 FL (7.4-10.4); MONOCYTES # (AUTO) 0.8 X10'3 (0-0.9); MONOCYTES % (AUTO) 9.8 % (2-12); NEUTROPHILS % (AUTO) 75.2 % (42-75); PLATELET COUNT 236 X10'3 (140-440); RED BLOOD COUNT 4.18 X10'6 (4.70-6.10); RED CELL DISTRIBUTION WIDTH 15.2 % (11.5-14.5)
[2018-03-24] MEDS: ipratropium/albuterol 3ml nebule NEB SCH ×5 (07:34→23:23)
[2018-03-24] MEDS: lactobacillus rhamnosus 10,000 MMU CELLS/CAPSULE PO SCH ×2 (08:00→20:18)
[2018-03-24] MEDS: K and/or MAG REPLACEMENT MC SCH (08:00)
[2018-03-24] MEDS ORDERED: LIDOcaine Viscous 15ml cup ONE (11:33)
[2018-03-24] MEDS ORDERED: MIDAZolam 5mg/5ml vial ONE (11:33)
[2018-03-24] MEDS ORDERED: fentaNYL/PF 50MCG/1 ML 2ML syringe ONE (11:33)
[2018-03-24] MEDS ORDERED: diphenhydrAMINE 50 mg/ml inj ONE (12:35)
[2018-03-24] MEDS: pantoprazole 40MG/NS 100ML BAG 100 ML IV SCH ×2 (15:59→20:18)
[2018-03-24] MEDS: amitriptyline 25mg tablet PO SCH (20:18)
[2018-03-24 20:55] LABS: H PYLORI ANTIBODY NEGATIVE (Neg)
[2018-03-25] MEDS: NAFCILLIN IV SCH ×6 (00:34→19:43)
[2018-03-25] MEDS: NORMAL SALINE IV SCH ×6 (00:34→19:43)
[2018-03-25] MEDS: pantoprazole 40MG/NS 100ML BAG 100 ML IV SCH ×2 (00:34→06:20)
[2018-03-25 03:00] VITALS: BP 133/88
[2018-03-25] MEDS: ipratropium/albuterol 3ml nebule NEB SCH ×6 (03:19→23:18)
[2018-03-25] MEDS: HYDROmorphone 1 mg/ml syringe IV PRN ×2 (03:41→07:44)
[2018-03-25] MEDS: normal saline 1000ml 1,000 ML IV SCH ×2 (04:21→17:27)
[2018-03-25 06:00] VITALS: BP 147/93
[2018-03-25 06:43] LABS: BASOPHILS # (AUTO) 0.1 X10'3 (0-0.2); BASOPHILS % (AUTO) 0.9 % (0-1); EOSINOPHILS # (AUTO) 0.3 X10'3 (0-0.9); HEMATOCRIT 35.7 % (42.0-52.0); HEMOGLOBIN 12.3 g/dl (14.0-17.9); LYMPHOCYTES % (AUTO) 14.8 % (21-51); MEAN CORPUSCULAR HEMOGLOBIN 30.3 PG (27.0-31.0); MEAN CORPUSCULAR HGB CONC 34.3 % (33.0-36.5); MEAN CORPUSCULAR VOLUME 88.2 FL (78-98); MEAN PLATELET VOLUME 8.3 FL (7.4-10.4); MONOCYTES # (AUTO) 0.8 X10'3 (0-0.9); MONOCYTES % (AUTO) 11.2 % (2-12); NEUTROPHILS # (AUTO) 4.6 X10'3 (1.8-7.7); NEUTROPHILS % (AUTO) 69.1 % (42-75); PLATELET COUNT 252 X10'3 (140-440); RED BLOOD COUNT 4.05 X10'6 (4.70-6.10); RED CELL DISTRIBUTION WIDTH 15.1 % (11.5-14.5); WHITE BLOOD COUNT 6.7 X10'3 (4.5-11.0)
[2018-03-25 07:00] LABS: ALBUMIN 1.7 G/DL (3.4-5.0); ANION GAP 5 (8-16); BLOOD UREA NITROGEN 5 MG/DL (7-18); BUN/CREATININE RATIO 5.3 (5.4-32.0); CALCIUM 7.7 MG/DL (8.5-10.1); CHLORIDE 105 MMOL/L (99-107); CREATININE 0.94 MG/DL (0.60-1.10); GLUCOSE 106 MG/DL (70-104); POTASSIUM 3.6 MMOL/L (3.5-5.1); SODIUM 136 MMOL/L (135-145); TOTAL CARBON DIOXIDE 25.8 MMOL/L (24-32); eGFR 83 ML/MIN
[2018-03-25] MEDS: lactobacillus rhamnosus 10,000 MMU CELLS/CAPSULE PO SCH ×2 (07:44→19:44)
[2018-03-25] MEDS: K and/or MAG REPLACEMENT MC SCH (08:30)
[2018-03-25 11:00] VITALS: BP 128/77
[2018-03-25] MEDS: ondansetron/PF 4mg/2ml inj IV PRN ×2 (12:20→19:12)
[2018-03-25] MEDS: HYDROcodone/acetaminophen 10/325mg tab PO PRN ×3 (12:38→22:49)
[2018-03-25 15:00] VITALS: BP 107/77
[2018-03-25] MEDS: sucralfate 1 gm tablet PO SCH ×2 (17:22→22:25)
[2018-03-25] MEDS: mag hydrox/Alum hydrox/simeth 30ml oral suspension PO PRN ×2 (17:22→22:49)
[2018-03-25 19:00] VITALS: BP 127/85
[2018-03-25] MEDS: pantoprazole 40 MG vial IV SCH (19:40)
[2018-03-25] MEDS: temazepam 15mg capsule PO PRN (22:25)
[2018-03-25] MEDS: amitriptyline 25mg tablet PO SCH (22:25)
[2018-03-25 23:00] VITALS: BP 147/94
[2018-03-26] MEDS: NORMAL SALINE IV SCH ×6 (00:04→21:27)
[2018-03-26] MEDS: NAFCILLIN IV SCH ×6 (00:04→21:27)
[2018-03-26] MEDS: normal saline 1000ml 1,000 ML IV SCH ×2 (00:05→10:21)
[2018-03-26] MEDS: HYDROcodone/acetaminophen 10/325mg tab PO PRN ×2 (02:57→21:28)
[2018-03-26 03:00] VITALS: BP 145/89
[2018-03-26] MEDS: mag hydrox/Alum hydrox/simeth 30ml oral suspension PO PRN ×3 (03:00→21:27)
[2018-03-26] MEDS: ipratropium/albuterol 3ml nebule NEB SCH ×7 (03:01→23:22)
[2018-03-26 07:00] VITALS: BP 167/108
[2018-03-26] MEDS: pantoprazole 40 MG vial IV SCH ×2 (07:55→19:37)
[2018-03-26] MEDS: sucralfate 1 gm tablet PO SCH ×4 (07:55→21:28)
[2018-03-26] MEDS: lactobacillus rhamnosus 10,000 MMU CELLS/CAPSULE PO SCH ×2 (07:55→19:37)
[2018-03-26 08:00] LABS: BASOPHILS # (AUTO) 0.1 X10'3 (0-0.2); EOSINOPHILS # (AUTO) 0.3 X10'3 (0-0.9); EOSINOPHILS % (AUTO) 4.2 % (0-6); HEMATOCRIT 39.3 % (42.0-52.0); HEMOGLOBIN 13.4 g/dl (14.0-17.9); LYMPHOCYTES # (AUTO) 0.8 X10'3 (1.1-4.8); LYMPHOCYTES % (AUTO) 12.7 % (21-51); MEAN CORPUSCULAR HEMOGLOBIN 30.6 PG (27.0-31.0); MEAN CORPUSCULAR VOLUME 90.1 FL (78-98); MONOCYTES # (AUTO) 0.7 X10'3 (0-0.9); MONOCYTES % (AUTO) 10.8 % (2-12); NEUTROPHILS # (AUTO) 4.4 X10'3 (1.8-7.7); NEUTROPHILS % (AUTO) 71.3 % (42-75); PLATELET COUNT 292 X10'3 (140-440); RED BLOOD COUNT 4.36 X10'6 (4.70-6.10); RED CELL DISTRIBUTION WIDTH 15.2 % (11.5-14.5); WHITE BLOOD COUNT 6.2 X10'3 (4.5-11.0)
[2018-03-26] MEDS: K and/or MAG REPLACEMENT MC SCH (08:00)
[2018-03-26] MEDS: metoprolol tartrate 12.5mg (1/2 tablet) PO SCH ×2 (08:00→19:36)
[2018-03-26 11:00] VITALS: BP 145/97
[2018-03-26] MEDS: LORazepam 2 mg/ml vial IV PRN (12:36)
[2018-03-26] MEDS: furosemide 40mg/4ml inj IV SCH ×2 (14:12→19:37)
[2018-03-26 15:00] VITALS: BP 128/81
[2018-03-26 19:00] VITALS: BP 109/73
[2018-03-26] MEDS: amitriptyline 25mg tablet PO SCH (19:36)
[2018-03-26] MEDS: LORazepam 1 MG tablet PO PRN (19:37)
[2018-03-26] MEDS: temazepam 15mg capsule PO PRN (21:41)
[2018-03-26 23:00] VITALS: BP 121/82
[2018-03-27] VITALS (7 sets, daily range): BP systolic 116–144; BP diastolic 74–81
[2018-03-27] MEDS: NAFCILLIN IV SCH ×6 (00:45→20:49)
[2018-03-27] MEDS: NORMAL SALINE IV SCH ×6 (00:45→20:49)
[2018-03-27] MEDS: ipratropium/albuterol 3ml nebule NEB SCH ×6 (03:27→23:22)
[2018-03-27 06:31] LABS: BASOPHILS # (AUTO) 0.1 X10'3 (0-0.2); BASOPHILS % (AUTO) 1.1 % (0-1); EOSINOPHILS # (AUTO) 0.2 X10'3 (0-0.9); EOSINOPHILS % (AUTO) 3.4 % (0-6); HEMATOCRIT 36.7 % (42.0-52.0); HEMOGLOBIN 12.7 g/dl (14.0-17.9); LYMPHOCYTES # (AUTO) 1.2 X10'3 (1.1-4.8); LYMPHOCYTES % (AUTO) 18.8 % (21-51); MEAN CORPUSCULAR HEMOGLOBIN 30.4 PG (27.0-31.0); MEAN CORPUSCULAR HGB CONC 34.7 % (33.0-36.5); MEAN CORPUSCULAR VOLUME 87.5 FL (78-98); MEAN PLATELET VOLUME 8.4 FL (7.4-10.4); MONOCYTES # (AUTO) 0.7 X10'3 (0-0.9); MONOCYTES % (AUTO) 10.4 % (2-12); NEUTROPHILS # (AUTO) 4.4 X10'3 (1.8-7.7); NEUTROPHILS % (AUTO) 66.3 % (42-75); PLATELET COUNT 321 X10'3 (140-440); WHITE BLOOD COUNT 6.7 X10'3 (4.5-11.0)
[2018-03-27] MEDS: metoprolol tartrate 12.5mg (1/2 tablet) PO SCH ×2 (07:42→20:52)
[2018-03-27] MEDS: lactobacillus rhamnosus 10,000 MMU CELLS/CAPSULE PO SCH ×2 (07:42→20:52)
[2018-03-27] MEDS: pantoprazole 40 MG vial IV SCH ×2 (07:42→20:52)
[2018-03-27] MEDS: furosemide 40mg/4ml inj IV SCH ×2 (07:42→20:52)
[2018-03-27] MEDS: HYDROmorphone 1 mg/ml syringe IV PRN ×3 (07:46→16:13)
[2018-03-27] MEDS: K and/or MAG REPLACEMENT MC SCH (08:00)
[2018-03-27] MEDS: sucralfate 1 gm tablet PO SCH ×4 (09:14→20:52)
[2018-03-27 09:36] LABS: ALANINE AMINOTRANSFERASE 20 U/L (12-78); ALBUMIN 2.1 G/DL (3.4-5.0); ALBUMIN/GLOBULIN RATIO 0.4 (1.1-1.5); ALKALINE PHOSPHATASE 62 IU/L (46-116); ANION GAP 9 (8-16); ASPARTATE AMINO TRANSFERASE 25 U/L (10-37); BILIRUBIN,TOTAL 1.1 MG/DL (0.1-1.0); BLOOD UREA NITROGEN 8 MG/DL (7-18); BUN/CREATININE RATIO 8.1 (5.4-32.0); CALCIUM 8.4 MG/DL (8.5-10.1); CHLORIDE 102 MMOL/L (99-107); CREATININE 0.99 MG/DL (0.60-1.10); GLUCOSE 125 MG/DL (70-104); SODIUM 139 MMOL/L (135-145); TOTAL CARBON DIOXIDE 27.7 MMOL/L (24-32); TOTAL PROTEIN 7.5 G/DL (6.4-8.2); eGFR 78 ML/MIN
[2018-03-27 09:38] LABS: POTASSIUM 2.7 MMOL/L (3.5-5.1)
[2018-03-27] MEDS ORDERED: magnesium Cl slow-release 64mg tablet PO PRN (09:50)
[2018-03-27] MEDS ORDERED: potassium Cl 20 mEq SR tablet PO PRN ×2 (09:50)
[2018-03-27] MEDS ORDERED: potassium Cl 40MEQ/NS 500ml 500 ML IV PRN ×2 (09:50)
[2018-03-27] MEDS ORDERED: magnesium 4gm in 100ml NS 100 ML IV PRN (09:50)
[2018-03-27] MEDS ORDERED: magnesium 1gm/100ml D5W IVPB 100 ML IV PRN (09:50)
[2018-03-27] MEDS ORDERED: LIDOcaine 1% 30ml vial 5 ML in potassium Cl 40MEQ/NS 500ml 500 ML IV PRN (10:05)
[2018-03-27 10:09] LABS: MAGNESIUM 1.6 MG/DL (1.5-2.4)
[2018-03-27] MEDS: HYDROcodone/acetaminophen 10/325mg tab PO PRN ×3 (13:17→22:28)
[2018-03-27] MEDS: mag hydrox/Alum hydrox/simeth 30ml oral suspension PO PRN (17:46)
[2018-03-27] MEDS: amitriptyline 25mg tablet PO SCH (20:52)
[2018-03-27] MEDS: temazepam 15mg capsule PO PRN (22:28)
[2018-03-28] MEDS: NORMAL SALINE IV SCH ×6 (00:34→20:44)
[2018-03-28] MEDS: NAFCILLIN IV SCH ×6 (00:34→20:44)
[2018-03-28 03:00] VITALS: BP 118/85
[2018-03-28] MEDS: ipratropium/albuterol 3ml nebule NEB SCH ×4 (03:02→19:54)
[2018-03-28] MEDS: mag hydrox/Alum hydrox/simeth 30ml oral suspension PO PRN (03:57)
[2018-03-28] MEDS: HYDROcodone/acetaminophen 10/325mg tab PO PRN ×5 (03:57→20:55)
[2018-03-28 06:52] LABS: BASOPHILS # (AUTO) 0.1 X10'3 (0-0.2); BASOPHILS % (AUTO) 1.2 % (0-1); EOSINOPHILS # (AUTO) 0.3 X10'3 (0-0.9); EOSINOPHILS % (AUTO) 4.5 % (0-6); LYMPHOCYTES # (AUTO) 1.3 X10'3 (1.1-4.8); LYMPHOCYTES % (AUTO) 21.5 % (21-51); MEAN CORPUSCULAR HEMOGLOBIN 29.8 PG (27.0-31.0); MEAN CORPUSCULAR HGB CONC 34.3 % (33.0-36.5); MEAN CORPUSCULAR VOLUME 86.9 FL (78-98); MEAN PLATELET VOLUME 8.4 FL (7.4-10.4); MONOCYTES # (AUTO) 0.8 X10'3 (0-0.9); MONOCYTES % (AUTO) 12.6 % (2-12); NEUTROPHILS # (AUTO) 3.7 X10'3 (1.8-7.7); NEUTROPHILS % (AUTO) 60.2 % (42-75); PLATELET COUNT 342 X10'3 (140-440); RED BLOOD COUNT 4.37 X10'6 (4.70-6.10); RED CELL DISTRIBUTION WIDTH 15.4 % (11.5-14.5); WHITE BLOOD COUNT 6.1 X10'3 (4.5-11.0)
[2018-03-28] MEDS: HYDROmorphone 1 mg/ml syringe IV PRN (06:53)
[2018-03-28] MEDS: sucralfate 1 gm tablet PO SCH ×4 (06:58→20:44)
[2018-03-28 06:59] LABS: MAGNESIUM 1.7 MG/DL (1.5-2.4)
[2018-03-28 07:32] LABS: POTASSIUM 2.7 MMOL/L (3.5-5.1)
[2018-03-28 07:52] VITALS: BP 122/89
[2018-03-28] MEDS: K and/or MAG REPLACEMENT MC SCH (08:00)
[2018-03-28] MEDS: furosemide 40mg/4ml inj IV SCH (08:33)
[2018-03-28] MEDS: pantoprazole 40 MG vial IV SCH ×2 (08:33→20:44)
[2018-03-28] MEDS: metoprolol tartrate 12.5mg (1/2 tablet) PO SCH ×2 (08:33→20:44)
[2018-03-28] MEDS: lactobacillus rhamnosus 10,000 MMU CELLS/CAPSULE PO SCH ×2 (08:33→20:44)
[2018-03-28] MEDS: potassium Cl 20 mEq SR tablet PO SCH (08:34)
[2018-03-28] MEDS: LIDOcaine 1% 30ml vial 5 ML in potassium Cl 40MEQ/NS 500ml 500 ML IV PRN ×2 (08:35→16:34)
[2018-03-28 12:24] VITALS: BP 109/65
[2018-03-28] MEDS: LORazepam 1 MG tablet PO PRN (16:32)
[2018-03-28 19:00] VITALS: BP 128/84
[2018-03-28] MEDS: amitriptyline 25mg tablet PO SCH (20:44)
[2018-03-28 23:00] VITALS: BP 105/73
[2018-03-29] MEDS: NAFCILLIN IV SCH ×6 (00:04→20:54)
[2018-03-29] MEDS: NORMAL SALINE IV SCH ×6 (00:04→20:54)
[2018-03-29 03:00] VITALS: BP 111/74
[2018-03-29] MEDS: HYDROcodone/acetaminophen 10/325mg tab PO PRN ×4 (04:05→20:45)
[2018-03-29 06:06] LABS: BASOPHILS # (AUTO) 0.1 X10'3 (0-0.2); BASOPHILS % (AUTO) 1.4 % (0-1); EOSINOPHILS # (AUTO) 0.4 X10'3 (0-0.9); EOSINOPHILS % (AUTO) 6.2 % (0-6); HEMATOCRIT 37.6 % (42.0-52.0); HEMOGLOBIN 12.9 g/dl (14.0-17.9); LYMPHOCYTES # (AUTO) 1.3 X10'3 (1.1-4.8); LYMPHOCYTES % (AUTO) 22.8 % (21-51); MEAN CORPUSCULAR HEMOGLOBIN 30.3 PG (27.0-31.0); MEAN CORPUSCULAR HGB CONC 34.4 % (33.0-36.5); MEAN CORPUSCULAR VOLUME 88.2 FL (78-98); MEAN PLATELET VOLUME 8.3 FL (7.4-10.4); MONOCYTES # (AUTO) 0.7 X10'3 (0-0.9); MONOCYTES % (AUTO) 12.5 % (2-12); NEUTROPHILS # (AUTO) 3.4 X10'3 (1.8-7.7); NEUTROPHILS % (AUTO) 57.1 % (42-75); PLATELET COUNT 313 X10'3 (140-440); RED BLOOD COUNT 4.26 X10'6 (4.70-6.10); RED CELL DISTRIBUTION WIDTH 15.1 % (11.5-14.5); WHITE BLOOD COUNT 5.9 X10'3 (4.5-11.0)
[2018-03-29 06:19] LABS: ALANINE AMINOTRANSFERASE 20 U/L (12-78); ALBUMIN 2.2 G/DL (3.4-5.0); ALBUMIN/GLOBULIN RATIO 0.4 (1.1-1.5); ALKALINE PHOSPHATASE 54 IU/L (46-116); ANION GAP 7 (8-16); ASPARTATE AMINO TRANSFERASE 28 U/L (10-37); BILIRUBIN,TOTAL 1.1 MG/DL (0.1-1.0); BLOOD UREA NITROGEN 9 MG/DL (7-18); BUN/CREATININE RATIO 8.5 (5.4-32.0); CALCIUM 8.6 MG/DL (8.5-10.1); CHLORIDE 103 MMOL/L (99-107); CREATININE 1.06 MG/DL (0.60-1.10); GLUCOSE 109 MG/DL (70-104); MAGNESIUM 1.7 MG/DL (1.5-2.4); POTASSIUM 3.5 MMOL/L (3.5-5.1); SODIUM 136 MMOL/L (135-145); TOTAL CARBON DIOXIDE 25.9 MMOL/L (24-32); TOTAL PROTEIN 7.3 G/DL (6.4-8.2); eGFR 73 ML/MIN
[2018-03-29 07:00] VITALS: BP 115/86
[2018-03-29] MEDS: ipratropium/albuterol 3ml nebule NEB SCH ×6 (07:10→20:54)
[2018-03-29] MEDS: K and/or MAG REPLACEMENT MC SCH (08:00)
[2018-03-29] MEDS: potassium Cl 20 mEq SR tablet PO SCH (08:00)
[2018-03-29] MEDS ORDERED: furosemide 40mg/4ml inj IV SCH (08:00)
[2018-03-29] MEDS: lactobacillus rhamnosus 10,000 MMU CELLS/CAPSULE PO SCH ×2 (09:27→20:43)
[2018-03-29] MEDS: metoprolol tartrate 12.5mg (1/2 tablet) PO SCH ×2 (09:27→20:43)
[2018-03-29] MEDS: sucralfate 1 gm tablet PO SCH ×4 (09:27→20:43)
[2018-03-29] MEDS: duloxetine 20mg capsule.DR PO SCH (09:27)
[2018-03-29] MEDS: pantoprazole 40 MG vial IV SCH ×2 (09:29→20:43)
[2018-03-29] MEDS ORDERED: loperamide 2mg capsule PO PRN ×2 (09:55→10:00)
[2018-03-29 11:00] VITALS: BP 106/74
[2018-03-29] MEDS: ondansetron/PF 4mg/2ml inj IV PRN (17:59)
[2018-03-29 19:00] VITALS: BP 116/74
[2018-03-29] MEDS: amitriptyline 25mg tablet PO SCH (20:43)
[2018-03-29 23:00] VITALS: BP 99/58
[2018-03-30] MEDS: NORMAL SALINE IV SCH ×6 (00:34→19:44)
[2018-03-30] MEDS: NAFCILLIN IV SCH ×6 (00:34→19:44)
[2018-03-30 03:00] VITALS: BP 104/65
[2018-03-30 05:50] LABS: BASOPHILS # (AUTO) 0.1 X10'3 (0-0.2); BASOPHILS % (AUTO) 1.2 % (0-1); EOSINOPHILS # (AUTO) 0.3 X10'3 (0-0.9); EOSINOPHILS % (AUTO) 6.1 % (0-6); HEMATOCRIT 37.4 % (42.0-52.0); HEMOGLOBIN 12.4 g/dl (14.0-17.9); LYMPHOCYTES # (AUTO) 1.2 X10'3 (1.1-4.8); LYMPHOCYTES % (AUTO) 20.2 % (21-51); MEAN CORPUSCULAR HEMOGLOBIN 29.5 PG (27.0-31.0); MEAN CORPUSCULAR HGB CONC 33.1 % (33.0-36.5); MEAN CORPUSCULAR VOLUME 89.2 FL (78-98); MEAN PLATELET VOLUME 8.2 FL (7.4-10.4); MONOCYTES # (AUTO) 0.7 X10'3 (0-0.9); MONOCYTES % (AUTO) 12.7 % (2-12); NEUTROPHILS # (AUTO) 3.4 X10'3 (1.8-7.7); NEUTROPHILS % (AUTO) 59.8 % (42-75); PLATELET COUNT 333 X10'3 (140-440); RED BLOOD COUNT 4.19 X10'6 (4.70-6.10); RED CELL DISTRIBUTION WIDTH 15.6 % (11.5-14.5); WHITE BLOOD COUNT 5.7 X10'3 (4.5-11.0)
[2018-03-30 06:00] VITALS: BP 114/72
[2018-03-30 06:11] LABS: ALANINE AMINOTRANSFERASE 18 U/L (12-78); ALBUMIN 2.2 G/DL (3.4-5.0); ALBUMIN/GLOBULIN RATIO 0.4 (1.1-1.5); ALKALINE PHOSPHATASE 58 IU/L (46-116); ANION GAP 6 (8-16); ASPARTATE AMINO TRANSFERASE 26 U/L (10-37); BLOOD UREA NITROGEN 10 MG/DL (7-18); BUN/CREATININE RATIO 9.2 (5.4-32.0); CALCIUM 8.3 MG/DL (8.5-10.1); CHLORIDE 103 MMOL/L (99-107); CREATININE 1.09 MG/DL (0.60-1.10); GLUCOSE 112 MG/DL (70-104); MAGNESIUM 1.8 MG/DL (1.5-2.4); SODIUM 138 MMOL/L (135-145); TOTAL CARBON DIOXIDE 28.9 MMOL/L (24-32); TOTAL PROTEIN 7.4 G/DL (6.4-8.2); eGFR 70 ML/MIN
[2018-03-30] MEDS: metoprolol tartrate 12.5mg (1/2 tablet) PO SCH ×2 (07:27→19:43)
[2018-03-30] MEDS: sucralfate 1 gm tablet PO SCH ×4 (07:27→20:22)
[2018-03-30] MEDS: lactobacillus rhamnosus 10,000 MMU CELLS/CAPSULE PO SCH ×2 (07:28→19:43)
[2018-03-30] MEDS: duloxetine 20mg capsule.DR PO SCH (07:28)
[2018-03-30] MEDS: potassium Cl 20 mEq SR tablet PO SCH (07:28)
[2018-03-30] MEDS: pantoprazole 40 MG vial IV SCH ×2 (07:30→19:43)
[2018-03-30] MEDS: ipratropium/albuterol 3ml nebule NEB SCH ×6 (07:47→23:22)
[2018-03-30] MEDS: K and/or MAG REPLACEMENT MC SCH (08:00)
[2018-03-30 11:00] VITALS: BP 110/80
[2018-03-30 15:00] VITALS: BP 116/83
[2018-03-30 18:00] VITALS: BP 112/77
[2018-03-30] MEDS: LORazepam 1 MG tablet PO PRN (19:43)
[2018-03-30] MEDS: mag hydrox/Alum hydrox/simeth 30ml oral suspension PO PRN (19:43)
[2018-03-30 22:00] VITALS: BP 120/79
[2018-03-31] MEDS: NAFCILLIN IV SCH ×6 (00:15→21:04)
[2018-03-31] MEDS: NORMAL SALINE IV SCH ×6 (00:15→21:04)
[2018-03-31] MEDS: LORazepam 1 MG tablet PO PRN (01:44)
[2018-03-31] MEDS: mag hydrox/Alum hydrox/simeth 30ml oral suspension PO PRN (01:44)
[2018-03-31 02:00] VITALS: BP 114/80
[2018-03-31] MEDS: ipratropium/albuterol 3ml nebule NEB SCH ×4 (03:20→15:32)
[2018-03-31 06:00] VITALS: BP 100/65
[2018-03-31 07:31] LABS: BASOPHILS # (AUTO) 0.1 X10'3 (0-0.2); BASOPHILS % (AUTO) 1.2 % (0-1); EOSINOPHILS # (AUTO) 0.2 X10'3 (0-0.9); EOSINOPHILS % (AUTO) 3.8 % (0-6); HEMATOCRIT 37.3 % (42.0-52.0); HEMOGLOBIN 12.8 g/dl (14.0-17.9); LYMPHOCYTES # (AUTO) 1.3 X10'3 (1.1-4.8); LYMPHOCYTES % (AUTO) 21.5 % (21-51); MEAN CORPUSCULAR HEMOGLOBIN 29.9 PG (27.0-31.0); MEAN CORPUSCULAR HGB CONC 34.2 % (33.0-36.5); MEAN CORPUSCULAR VOLUME 87.6 FL (78-98); MEAN PLATELET VOLUME 8.6 FL (7.4-10.4); MONOCYTES # (AUTO) 0.7 X10'3 (0-0.9); MONOCYTES % (AUTO) 11.3 % (2-12); NEUTROPHILS # (AUTO) 3.9 X10'3 (1.8-7.7); NEUTROPHILS % (AUTO) 62.2 % (42-75); PLATELET COUNT 337 X10'3 (140-440); RED BLOOD COUNT 4.26 X10'6 (4.70-6.10); RED CELL DISTRIBUTION WIDTH 15.4 % (11.5-14.5); WHITE BLOOD COUNT 6.2 X10'3 (4.5-11.0)
[2018-03-31 07:47] LABS: ALANINE AMINOTRANSFERASE 22 U/L (12-78); ALBUMIN 2.3 G/DL (3.4-5.0); ALBUMIN/GLOBULIN RATIO 0.4 (1.1-1.5); ALKALINE PHOSPHATASE 53 IU/L (46-116); ANION GAP 9 (8-16); ASPARTATE AMINO TRANSFERASE 28 U/L (10-37); BILIRUBIN,TOTAL 0.9 MG/DL (0.1-1.0); BLOOD UREA NITROGEN 7 MG/DL (7-18); BUN/CREATININE RATIO 7.4 (5.4-32.0); CALCIUM 8.4 MG/DL (8.5-10.1); CHLORIDE 104 MMOL/L (99-107); CREATININE 0.95 MG/DL (0.60-1.10); GLUCOSE 103 MG/DL (70-104); MAGNESIUM 1.7 MG/DL (1.5-2.4); POTASSIUM 3.3 MMOL/L (3.5-5.1); SODIUM 138 MMOL/L (135-145); TOTAL CARBON DIOXIDE 24.7 MMOL/L (24-32); TOTAL PROTEIN 7.5 G/DL (6.4-8.2); eGFR 82 ML/MIN
[2018-03-31] MEDS: K and/or MAG REPLACEMENT MC SCH (08:00)
[2018-03-31] MEDS: pantoprazole 40 MG vial IV SCH ×2 (08:06→21:04)
[2018-03-31] MEDS: duloxetine 20mg capsule.DR PO SCH (08:06)
[2018-03-31] MEDS: metoprolol tartrate 12.5mg (1/2 tablet) PO SCH ×2 (08:06→21:03)
[2018-03-31] MEDS: sucralfate 1 gm tablet PO SCH ×4 (08:06→21:03)
[2018-03-31] MEDS: lactobacillus rhamnosus 10,000 MMU CELLS/CAPSULE PO SCH ×2 (08:06→21:03)
[2018-03-31] MEDS: potassium Cl 20 mEq SR tablet PO SCH ×3 (08:07→17:55)
[2018-03-31 11:00] VITALS: BP 106/75
[2018-03-31] MEDS ORDERED: potassium Cl 20 mEq SR tablet PO PRN ×2 (13:20)
[2018-03-31 15:00] VITALS: BP 111/70
[2018-03-31 18:00] VITALS: BP 113/71
[2018-03-31 22:00] VITALS: BP 128/87
[2018-04-01] MEDS: NORMAL SALINE IV SCH ×7 (01:00→23:52)
[2018-04-01] MEDS: NAFCILLIN IV SCH ×7 (01:00→23:52)
[2018-04-01 02:00] VITALS: BP 115/81
[2018-04-01 05:06] LABS: BASOPHILS # (AUTO) 0.1 X10'3 (0-0.2); BASOPHILS % (AUTO) 1.1 % (0-1); EOSINOPHILS # (AUTO) 0.3 X10'3 (0-0.9); EOSINOPHILS % (AUTO) 4.4 % (0-6); HEMATOCRIT 35.5 % (42.0-52.0); HEMOGLOBIN 12.2 g/dl (14.0-17.9); LYMPHOCYTES # (AUTO) 1.7 X10'3 (1.1-4.8); LYMPHOCYTES % (AUTO) 23.8 % (21-51); MEAN CORPUSCULAR HEMOGLOBIN 30.2 PG (27.0-31.0); MEAN CORPUSCULAR HGB CONC 34.5 % (33.0-36.5); MEAN CORPUSCULAR VOLUME 87.6 FL (78-98); MEAN PLATELET VOLUME 8.6 FL (7.4-10.4); MONOCYTES % (AUTO) 14.3 % (2-12); NEUTROPHILS % (AUTO) 56.4 % (42-75); PLATELET COUNT 327 X10'3 (140-440); RED BLOOD COUNT 4.05 X10'6 (4.70-6.10); RED CELL DISTRIBUTION WIDTH 15.8 % (11.5-14.5); WHITE BLOOD COUNT 7.1 X10'3 (4.5-11.0)
[2018-04-01 05:28] LABS: ALANINE AMINOTRANSFERASE 22 U/L (12-78); ALBUMIN 2.4 G/DL (3.4-5.0); ALBUMIN/GLOBULIN RATIO 0.5 (1.1-1.5); ALKALINE PHOSPHATASE 55 IU/L (46-116); ANION GAP 5 (8-16); ASPARTATE AMINO TRANSFERASE 26 U/L (10-37); BILIRUBIN,TOTAL 0.8 MG/DL (0.1-1.0); BLOOD UREA NITROGEN 7 MG/DL (7-18); BUN/CREATININE RATIO 6.5 (5.4-32.0); CALCIUM 8.6 MG/DL (8.5-10.1); CHLORIDE 104 MMOL/L (99-107); CREATININE 1.08 MG/DL (0.60-1.10); GLUCOSE 111 MG/DL (70-104); POTASSIUM 3.5 MMOL/L (3.5-5.1); SODIUM 136 MMOL/L (135-145); TOTAL CARBON DIOXIDE 26.7 MMOL/L (24-32); TOTAL PROTEIN 7.5 G/DL (6.4-8.2); eGFR 71 ML/MIN
[2018-04-01 06:00] VITALS: BP 108/78
[2018-04-01] MEDS: metoprolol tartrate 12.5mg (1/2 tablet) PO SCH ×2 (07:55→20:29)
[2018-04-01] MEDS: duloxetine 20mg capsule.DR PO SCH (07:56)
[2018-04-01] MEDS: potassium Cl 20 mEq SR tablet PO SCH (07:56)
[2018-04-01] MEDS: sucralfate 1 gm tablet PO SCH ×4 (07:56→21:30)
[2018-04-01] MEDS: lactobacillus rhamnosus 10,000 MMU CELLS/CAPSULE PO SCH ×2 (07:56→20:29)
[2018-04-01] MEDS: pantoprazole 40 MG vial IV SCH ×2 (07:57→20:29)
[2018-04-01] MEDS: K and/or MAG REPLACEMENT MC SCH (08:00)
[2018-04-01] MEDS: mag hydrox/Alum hydrox/simeth 30ml oral suspension PO PRN ×2 (13:07→21:33)
[2018-04-01] MEDS: HYDROcodone/acetaminophen 10/325mg tab PO PRN ×2 (17:25→21:32)
[2018-04-01 18:00] VITALS: BP 123/79
[2018-04-01] MEDS: temazepam 15mg capsule PO PRN (21:33)
[2018-04-01 22:00] VITALS: BP 119/87
[2018-04-02] MEDS: HYDROcodone/acetaminophen 10/325mg tab PO PRN ×4 (02:12→22:52)
[2018-04-02] MEDS: mag hydrox/Alum hydrox/simeth 30ml oral suspension PO PRN (03:05)
[2018-04-02] MEDS: NAFCILLIN IV SCH ×5 (04:56→20:51)
[2018-04-02] MEDS: NORMAL SALINE IV SCH ×5 (04:56→20:51)
[2018-04-02 05:00] VITALS: BP 110/66
[2018-04-02 05:51] LABS: BASOPHILS # (AUTO) 0.1 X10'3 (0-0.2); BASOPHILS % (AUTO) 1.5 % (0-1); EOSINOPHILS # (AUTO) 0.2 X10'3 (0-0.9); EOSINOPHILS % (AUTO) 3.9 % (0-6); HEMATOCRIT 36.7 % (42.0-52.0); HEMOGLOBIN 12.6 g/dl (14.0-17.9); LYMPHOCYTES # (AUTO) 1.7 X10'3 (1.1-4.8); LYMPHOCYTES % (AUTO) 27.6 % (21-51); MEAN CORPUSCULAR HEMOGLOBIN 30.2 PG (27.0-31.0); MEAN CORPUSCULAR HGB CONC 34.4 % (33.0-36.5); MEAN CORPUSCULAR VOLUME 87.7 FL (78-98); MEAN PLATELET VOLUME 8.9 FL (7.4-10.4); MONOCYTES # (AUTO) 0.9 X10'3 (0-0.9); MONOCYTES % (AUTO) 14.7 % (2-12); NEUTROPHILS # (AUTO) 3.3 X10'3 (1.8-7.7); NEUTROPHILS % (AUTO) 52.3 % (42-75); PLATELET COUNT 322 X10'3 (140-440); RED BLOOD COUNT 4.19 X10'6 (4.70-6.10); RED CELL DISTRIBUTION WIDTH 15.4 % (11.5-14.5); WHITE BLOOD COUNT 6.3 X10'3 (4.5-11.0)
[2018-04-02 06:17] LABS: ALANINE AMINOTRANSFERASE 30 U/L (12-78); ALBUMIN 2.4 G/DL (3.4-5.0); ALBUMIN/GLOBULIN RATIO 0.5 (1.1-1.5); ALKALINE PHOSPHATASE 56 IU/L (46-116); ANION GAP 9 (8-16); ASPARTATE AMINO TRANSFERASE 30 U/L (10-37); BILIRUBIN,TOTAL 0.8 MG/DL (0.1-1.0); BLOOD UREA NITROGEN 6 MG/DL (7-18); BUN/CREATININE RATIO 5.8 (5.4-32.0); CALCIUM 8.7 MG/DL (8.5-10.1); CHLORIDE 105 MMOL/L (99-107); CREATININE 1.04 MG/DL (0.60-1.10); GLUCOSE 106 MG/DL (70-104); POTASSIUM 3.3 MMOL/L (3.5-5.1); SODIUM 139 MMOL/L (135-145); TOTAL CARBON DIOXIDE 25.2 MMOL/L (24-32); TOTAL PROTEIN 7.4 G/DL (6.4-8.2); eGFR 74 ML/MIN
[2018-04-02] MEDS: K and/or MAG REPLACEMENT MC SCH (06:54)
[2018-04-02] MEDS: sucralfate 1 gm tablet PO SCH ×4 (07:00→20:51)
[2018-04-02] MEDS: pantoprazole 40 MG vial IV SCH ×2 (08:52→20:51)
[2018-04-02] MEDS: lactobacillus rhamnosus 10,000 MMU CELLS/CAPSULE PO SCH ×2 (08:52→20:51)
[2018-04-02] MEDS: metoprolol tartrate 12.5mg (1/2 tablet) PO SCH ×2 (08:52→20:51)
[2018-04-02] MEDS: potassium Cl 20 mEq SR tablet PO SCH (08:52)
[2018-04-02] MEDS: duloxetine 20mg capsule.DR PO SCH (08:53)
[2018-04-02 10:00] VITALS: BP 113/69
[2018-04-02 18:00] VITALS: BP 114/74
[2018-04-02 22:00] VITALS: BP 121/76
[2018-04-03] MEDS: NORMAL SALINE IV SCH ×5 (00:12→16:17)
[2018-04-03] MEDS: NAFCILLIN IV SCH ×5 (00:12→16:17)
[2018-04-03] MEDS: HYDROcodone/acetaminophen 10/325mg tab PO PRN ×2 (03:13→13:36)
[2018-04-03 05:00] VITALS: BP 95/50
[2018-04-03 06:16] LABS: BASOPHILS # (AUTO) 0.1 X10'3 (0-0.2); EOSINOPHILS # (AUTO) 0.3 X10'3 (0-0.9); EOSINOPHILS % (AUTO) 4.2 % (0-6); HEMATOCRIT 34.3 % (42.0-52.0); HEMOGLOBIN 11.7 g/dl (14.0-17.9); LYMPHOCYTES # (AUTO) 1.6 X10'3 (1.1-4.8); LYMPHOCYTES % (AUTO) 22.7 % (21-51); MEAN CORPUSCULAR HGB CONC 34.3 % (33.0-36.5); MEAN CORPUSCULAR VOLUME 87.6 FL (78-98); MEAN PLATELET VOLUME 8.4 FL (7.4-10.4); MONOCYTES % (AUTO) 13.4 % (2-12); NEUTROPHILS # (AUTO) 4.2 X10'3 (1.8-7.7); NEUTROPHILS % (AUTO) 58.7 % (42-75); PLATELET COUNT 304 X10'3 (140-440); RED BLOOD COUNT 3.91 X10'6 (4.70-6.10); RED CELL DISTRIBUTION WIDTH 15.6 % (11.5-14.5); WHITE BLOOD COUNT 7.1 X10'3 (4.5-11.0)
[2018-04-03] MEDS: pantoprazole 40 MG vial IV SCH (07:44)
[2018-04-03] MEDS: potassium Cl 20 mEq SR tablet PO SCH (07:45)
[2018-04-03] MEDS: metoprolol tartrate 12.5mg (1/2 tablet) PO SCH (07:45)
[2018-04-03] MEDS: lactobacillus rhamnosus 10,000 MMU CELLS/CAPSULE PO SCH (07:45)
[2018-04-03] MEDS: duloxetine 20mg capsule.DR PO SCH (07:45)
[2018-04-03] MEDS: sucralfate 1 gm tablet PO SCH ×3 (07:55→16:03)
[2018-04-03] MEDS: K and/or MAG REPLACEMENT MC SCH (08:04)
[2018-04-03] MEDS: ondansetron/PF 4mg/2ml inj IV PRN (09:12)
[2018-04-03] MEDS ORDERED: NAFC2FRO IV (11:27)
[2018-04-03] MEDS ORDERED: ONDA4TAB9 PO (11:27)
[2018-04-03] MEDS ORDERED: PANT-47 PO (17:09)
[2018-04-03] MEDS ORDERED: METO-395 PO (17:09)
[2018-04-04 09:16] LABS: HBSAG SCREEN Negative (Negative); HEP A AB, IGM Negative (Negative); HEP B CORE AB, IGM Negative (Negative); HEPATITIS C ANTIBODY >11.0 s/co ratio (0.0-0.9)
== END 2018-04-03 17:50 | disposition home or self-care (01) | DRG 710 ==
LOC: ER 08:20 → ED HOLD 14:21 → PCU 3S 16:35 → CMPBEDREQ 19:32 → ORTHO 4S 04-01 11:00
PROVIDERS: ADMIT Family Medicine; ATTEND Family Medicine
PROC: BW251ZZ Computerized Tomography (CT Scan) of Chest, Abdomen and Pelvis using Low Osmolar Contrast (ICD-10-PCS; principal; 2018-03-15)
PROC: 00JU3ZZ Inspection of Spinal Canal, Percutaneous Approach (ICD-10-PCS; 2018-03-15)
PROC: BW211ZZ Computerized Tomography (CT Scan) of Abdomen and Pelvis using Low Osmolar Contrast (ICD-10-PCS; 2018-03-20)
PROC: 0DJ08ZZ Inspection of Upper Intestinal Tract, Via Natural or Artificial Opening Endoscopic (ICD-10-PCS; 2018-03-24)
DX: A41.01 Sepsis due to Methicillin susceptible Staphylococcus aureus (principal); I33.0 Acute and subacute infective endocarditis; G93.41 Metabolic encephalopathy; I76 Septic arterial embolism; N17.9 Acute kidney failure, unspecified; I74.8 Embolism and thrombosis of other arteries; I66.9 Occlusion and stenosis of unspecified cerebral artery; E87.1 Hypo-osmolality and hyponatremia; E83.39 Other disorders of phosphorus metabolism; D73.5 Infarction of spleen; R65.20 Severe sepsis without septic shock; F15.10 Other stimulant abuse, uncomplicated; E87.6 Hypokalemia; F11.10 Opioid abuse, uncomplicated; K21.0 Gastro-esophageal reflux disease with esophagitis; K29.60 Other gastritis without bleeding; D69.59 Other secondary thrombocytopenia; I05.9 Rheumatic mitral valve disease, unspecified; K52.9 Noninfective gastroenteritis and colitis, unspecified; K44.9 Diaphragmatic hernia without obstruction or gangrene; I50.9 Heart failure, unspecified; M19.90 Unspecified osteoarthritis, unspecified site; M79.89 Other specified soft tissue disorders; I49.9 Cardiac arrhythmia, unspecified; F41.9 Anxiety disorder, unspecified; K00.7 Teething syndrome; B95.61 Methicillin susceptible Staphylococcus aureus infection as the cause of diseases classified elsewhere; R10.9 Unspecified abdominal pain; Z60.2 Problems related to living alone; Z59.0 Homelessness; Z88.6 Allergy status to analgesic agent; Z88.1 Allergy status to other antibiotic agents; Z79.899 Other long term (current) drug therapy
CPT/HCPCS: 36415; 70450; 70551; 71045; 71260; 73630; 74021; 74176; 74177; 76700; 76705; 80048; 80053; 80074; 80202; 80305; 80320; 81001; 82140; 83036; 83605; 83735; 83880; 84100; 84132; 84145; 84443; 85025; 85610; 85651; 85730; 86140; 86677; 86703; 87040; 87070; 87077; 87186; 93005; 93306; 94640; 94760; 96365; 96367; 96375; 97110; 97116; 97161; 97530; 99285; A4353; A6250; C1758; C9113; G0500; J0290; J0696; J1170; J1200; J1644; J1940; J2060; J2250; J2405; J2543; J3010; J3370; J3475; J3480; J3486; J3490; J7030; Q9963; Q9967

== ENCOUNTER 2019-04-15 17:04 | Emergency (ER) | payer MEDICAID ==
[~2019-04-15] VITALS: Ht 182.9 cm; Wt 59.1 kg
[~2019-04-15 17:04] MED LIST: METO-395 PO; PANT-47 PO
[2019-04-15] MEDS ORDERED: ketorolac trometh inj. 60 MG/2 ML VIAL IM ONE (17:45)
--- NOTE | 2019-04-15 17:56 | NUR ---
Pt. transferred to CT by central sterile technician.
[2019-04-15 18:19] VITALS: BP 113/77
== END 2019-04-15 18:32 | disposition home or self-care (01) ==
LOC: ER 17:05
DX: M54.5 Low back pain (principal); R41.82 Altered mental status, unspecified; F15.90 Other stimulant use, unspecified, uncomplicated; Z60.2 Problems related to living alone; Z59.0 Homelessness; Z88.1 Allergy status to other antibiotic agents; Z79.899 Other long term (current) drug therapy; W22.8XXA Striking against or struck by other objects, initial encounter; Y93.89 Activity, other specified; Y92.89 Other specified places as the place of occurrence of the external cause; Y99.8 Other external cause status
CPT/HCPCS: 72131; 96372; 99284; J1885